=== PATIENT | female | born 1960 | race Caucasian/White ===

== ENCOUNTER → 2016-08-19 | Outpatient (CLI) | payer OTHER ==
[~2016-08-19] MED LIST: ADVAIR 250-501 EACH IH; ALBUTEROL MININEB NEB; ALBUTEROL17 GM INH; ASPIRIN81 M1 PO; ASPIRIN81 MG PO; BENADRYL25 MG PO; COMBIVENT INH14.7 G1 IH; COMBIVENT INH14.7 GM; COMBIVENT INH14.7 GM INH; COMPAZINE10 MG PO; CRESTOR PO; DARVOCET-N 1001 TAB PO; DIAZEPAM PO; DIFLUCAN PO; DILANTIN KAPSE100 MG PO; DILANTIN KAPSEA30 MG PO; DILANTIN PO; DUONEB 2.5-0.5 M3 ML NEB; HYDROCODON-ACE1 EAC1 PO; INDERAL LA PO; INDERAL40 MG PO; KLONOPIN1 MG PO; LEVAQUIN PO; LISINOPRIL PO; LISINOPRIL10 MG PO; LISINOPRIL20 MG PO; LOPRESSOR PO; LORTAB 5/500 TA1 TA1 PO; LORTAB 5/500 TA1 TA2 PO; MACROBID 100 M100 MG PO; OXYGEN; PEPCID PO; PHENERGAN25 MG PO; PHENOBARB PO; PHENOBARBITAL100 MG PO; PREDNISONE PO; PRILOSEC PO; PROVENTIL17 GM IH; SYMBICORT INH; VIBRAMYCIN100 M1 PO; ZOCOR10 MG PO; ZOFRAN ODT4 MG PO
--- NOTE | ~2016-08-19 | CR206 ---
[facility] A Service [facility] RADIOLOGY TEXT RESULTS PATIENT: PHYLLIS CABRERA LOCATION: [facility] : 62 UNIT #: [id number] AGE: [address]: Francisco Friedman MD SEX: F ORDER DR: [id number] [place] [id number] [id number] O MR#: [id number] Acc #: [id number] NAME: PHYLLIS CABRERA : 1960 SEX: F STUDY DATE/TIME: 08/19/2016 12:25 UNIT: [facility] ROOM: STUDY DESCRIPTION: CR Pelvis 1 or 2 Views Attending Physician: Francisco Friedman M.D. Referring Physician: Francisco Friedman M.D. Ordering Physician: Francisco Friedman M.D. Primary Care Physician: Francisco Friedman M.D. MEDICAL IMAGING REPORT This report is preliminary unless electronic signature is present. EXAM Frontal pelvis 08/19/2016 INDICATIONS 55-year-old female with pain in the right hip for the past month and a half. No known injury. TECHNIQUE Frontal pelvis performed. COMPARISON No comparison studies. FINDINGS Probable vascular calcifications in the pelvis. Bony pelvis intact. No acute fracture or significant degenerative change of either hip. IMPRESSION Negative Dictated by... Kahlil Vizcarra M.D. THIS IS AN ELECTRONICALLY VERIFIED REPORT Kahlil Vizcarra M.D. at 08/19/2016 7:17 PM Maximus TD: 08/19/2016 17:54 JOB #: [id number] MEDICAL IMAGING REPORT [facility] A Service [facility] RADIOLOGY TEXT RESULTS PATIENT: PHYLLIS CABRERA LOCATION: [facility] : 62 UNIT #: [id number] AGE: [address]: Francisco Friedman MD SEX: F ORDER DR: Page 1 of 1
--- NOTE | ~2016-08-19 | CR151 ---
[facility] A Service [facility] RADIOLOGY TEXT RESULTS PATIENT: PHYLLIS CABRERA LOCATION: [facility] : 62 UNIT #: [id number] AGE: [address]: Francisco Friedman MD SEX: F ORDER DR: [id number] [place] [address] [id number] O MR#: [id number] Acc #: [id number] NAME: PHYLLIS CABRERA : 1960 SEX: F STUDY DATE/TIME: 08/19/2016 12:25 UNIT: [facility] ROOM: STUDY DESCRIPTION: CR Hip Min 2 Views Rt Attending Physician: Francisco Friedman M.D. Referring Physician: Francisco Friedman M.D. Ordering Physician: Francisco Friedman M.D. Primary Care Physician: Francisco Friedman M.D. MEDICAL IMAGING REPORT This report is preliminary unless electronic signature is present. EXAM Right hip. DATE OF EXAM 08/19/2016 INDICATIONS 55-year-old female with right hip pain, symptoms for the past month and a half. No known injury. REPORT 2 views of the right hip. COMPARISON No comparisons. FINDINGS The examination is negative. No acute fracture. No significant degenerative change. Probable vascular calcifications in the pelvis. IMPRESSION 1. Negative. Dictated by... Kahlil Vizcarra M.D. THIS IS AN ELECTRONICALLY VERIFIED REPORT Kahlil Vizcarra M.D. at 08/19/2016 7:17 PM DARRIN/melita TD: 08/19/2016 17:54 JOB #: [id number] [facility] A Service [facility] RADIOLOGY TEXT RESULTS PATIENT: PHYLLIS CABRERA [facility] 62 UNIT #: [id number] AGE: [address]: Francisco Friedman MD SEX: F ORDER DR: MEDICAL IMAGING REPORT Page 1 of 1
== END | disposition home or self-care (01) ==
LOC: SRAD 11:50
DX: M25.551 Pain in right hip (principal)
CPT/HCPCS: 72170; 73502